=== PATIENT | female | born 1990 | race African-American/Black ===

== ENCOUNTER 2019-04-24 12:36 | Emergency (ER) | payer MEDICAID ==
[~2019-04-24] VITALS: Ht 157.5 cm; Wt 58.0 kg
[2019-04-24] MEDS ORDERED: ONDANSETRON HCL 4MG/2ML INJ IV STA (14:16)
[2019-04-24] MEDS ORDERED: KETOROLAC 30MG/ML VIAL IV STA (14:16)
[2019-04-24] MEDS ORDERED: SODIUM CHLORIDE 0.9% 1,000 ML IV ONE (14:16)
[2019-04-24 14:55] LABS: BASOPHILS % 0.6 % (0.0-2.0); EOSINOPHILS % 0.4 % (0.0-5.0); HEMATOCRIT. 44.1 % (36.0-48.0); HEMOGLOBIN. 14.4 g/dL (12.0-16.0); LYMPHOCYTES % 9.4 % (20.0-50.0); MEAN CORPUSCULAR HEMOGLOBIN 26.8 pg (28.0-32.0); MEAN PLATELET VOLUME 7.8 fl (7.4-10.4); MONOCYTES % 5.8 % (2.0-8.0); NEUTROPHILS % 83.8 % (40.0-76.0); PLATELET 378 x1000/uL (130-400); RED BLOOD CELL COUNT 5.37 mill/uL (4.2-5.4); RED CELL DISTRIBUTION WIDTH 19.6 % (11.6-14.6)
[2019-04-24 15:00] LABS: CHLORIDE 96 mEq/L (98-107)
[2019-04-24 15:06] LABS: HCG SCREEN NEGATIVE
[2019-04-24] MEDS ORDERED: METOCLOPRAMIDE HCL 10MG/2ML VIAL IV ONE (16:00)
[2019-04-24] MEDS ORDERED: MORPHINE SULFATE 2 MG/ML CPJ (NOT FOR IM USE) IV ONE (16:00)
[2019-04-24 16:16] LABS: CLARITY URINE CLOUDY (CLEAR); COLOR URINE YELLOW (YELLOW); KETONES URINE TRACE (NEGATIVE); LEUKOCYTE ESTERASE URINE NEGATIVE (NEGATIVE); NITRITE URINE NEGATIVE (NEGATIVE); OCCULT BLOOD URINE NEGATIVE (NEGATIVE); PROTEIN URINE 1+ (NEGATIVE); SPECIFIC GRAVITY URINE 1.023 (1.005-1.030); UROBILINOGEN URINE 0.2 E.U./dL (0.2-1.0)
[2019-04-24] MEDS ORDERED: DIPHENHYDRAMINE 50MG/ML VIAL IV ONE (16:30)
[2019-04-24 17:45] VITALS: BP 121/80
[2019-04-25 07:53] LABS: *BARBITURATES SCREEN URINE NEGATIVE (NEGATIVE)
[2019-04-25 07:54] LABS: *AMPHETAMINES SCREEN URINE NEGATIVE (NEGATIVE); *COCAINE SCREEN URINE NEGATIVE (NEGATIVE); METHADONE URINE SCREEN NEGATIVE (NEGATIVE)
[2019-04-25 07:55] LABS: PHENCYCLIDINE URINE SCREEN NEGATIVE (NEGATIVE)
[2019-04-25 08:00] LABS: *BENZODIAZEPINES SCREEN URINE PRESUMTIVE POSITIVE (NEGATIVE); CANNABINOID URINE SCREEN PRESUMTIVE POSITIVE (NEGATIVE); OPIATES URINE SCREEN PRESUMTIVE POSITIVE (NEGATIVE)
== END 2019-04-24 18:27 | disposition left against medical advice (07) ==
LOC: ER 14:59
DX: R10.13 Epigastric pain (principal); R07.89 Other chest pain; R11.10 Vomiting, unspecified; F17.200 Nicotine dependence, unspecified, uncomplicated; K21.9 Gastro-esophageal reflux disease without esophagitis; Z88.8 Allergy status to other drugs, medicaments and biological substances; Z98.890 Other specified postprocedural states
CPT/HCPCS: 36415; 71045; 80053; 80305; 81003; 81025; 83690; 83880; 84484; 84703; 85025; 93005; 96361; 96374; 96375; 99284; J1200; J1885; J2270; J2405; J2765; J7030; Z7610